=== PATIENT | female | born 1990 | race Asian ===

== ENCOUNTER 2018-04-05 07:34 | Emergency (ER) | payer OTHER ==
[2018-04-05 07:39] VITALS: BP 109/69; PULSE 96; TEMP 98.9; BMI 25.7
--- NOTE | 2018-04-05 08:10 | PDOC ---
History of Present Illness - General Chief Complaint: Cold Symptoms Stated Complaint: COUGH Time Seen by Provider: 04/05/18 07:44 History Source: Patient (Patient walked in complaining of cough, low grade fever muscle aches for 24 hours. just went over flu like symptoms recently. ) Exam Limitations: No Limitations - History of Present Illness Timing/Duration: 24 hours Severity: mild Modifying Factors: improves with: rest Associated Symptoms: reports: cough, fever/chills, nausea/vomiting Past History - Travel Traveled outside of the country in the last 30 days: No Close contact w/someone who was outside of country & ill: No - Past Medical History Allergies/Adverse Reactions: Allergies Allergy/AdvReac Type Severity Reaction Status Date / Time Penicillins Allergy Verified 04/05/18 07:36 Home Medications: Ambulatory Orders Oseltamivir Phosphate [Tamiflu -] 75 mg PO BID #10 capsule 04/05/18 Vit 108/Iron/Folic AC [ One Tablet] 1 each PO DAILY 04/05/18 COPD: No Other medical history: 13 week - Suicide/Smoking/Psychosocial Hx Smoking History: Never smoked Hx Alcohol Use: No Drug/Substance Use Hx: No Review of Systems - Review of Systems Able to Perform ROS?: Yes Is the patient limited Israeli proficient: Yes Constitutional: Yes: Fever, Malaise Respiratory: Yes: Symptoms reported, See HPI, Cough Cardiac (ROS): No: Symptoms Reported, See HPI, Chest Pain, Edema, Irregular Heart Rate, Lightheadedness, Palpitations, Syncope, Chest Tightness, Other ABD/GI: Yes: Nausea, Vomiting Neurological: No: Symptoms reported, See HPI, Headache, Numbness, Paresthesia, Pre-Existing Deficit, Seizure, Tingling, Tremors, Weakness, Unsteady Gait, Ataxia, Dizziness, Other Psychiatric: No: Anxiety, Depression, Frequent Crying, Stressors, Sleep Pattern Change, Emotional Problems, Mood Swings, Change in Appetite, Other All Other Systems: Reviewed and Negative *Physical Exam - Vital Signs Last Vital Signs Temp Pulse Resp BP Pulse Ox 98.9 F 96 H 16 109/69 100 04/05/18 07:35 04/05/18 07:35 04/05/18 07:35 04/05/18 07:35 04/05/18 07:35 - Physical Exam General Appearance: Yes: Nourished, Appropriately Dressed, Mild Distress HEENT: positive: ANNA, Scleral Icterus (R) Neck: positive: Normal Thyroid, Supple Respiratory/Chest: positive: Lungs Clear, Wheezing (very few wheezes) Cardiovascular: positive: S1, S2 Gastrointestinal/Abdominal: positive: Normal Bowel Sounds, Soft, Other ( suprapubic: uterus). 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 Discussed pros and cons of antiviral meds Patient agrees to start the Tamiflu 04/06/18 14:11 *DC/Admit/Observation/Transfer Diagnosis at time of Disposition: Viral syndrome Qualifiers: Weeks of gestation: 13 weeks Qualified Code(s): Z3A.13 - 13 weeks gestation of - Discharge Dispostion Disposition: HOME Condition at time of disposition: Stable Decision to Admit order: No - Prescriptions Prescriptions: Oseltamivir Phosphate [Tamiflu -] 75 mg PO BID #10 capsule - Referrals - Patient Instructions Printed Discharge Instructions: How to Avoid a Cold or Flu, DI for Viral Upper Respiratory Infection -- Adult Additional Instructions: FLUIDS, REST, ROBITUSSIN COUGH SYRUP RETURN TO ER IF MORE SYMPTOMS - Post Discharge Activity Forms/Work/School Notes: Back to Work
== END 2018-04-05 08:18 | disposition home or self-care (01) ==
LOC: FER 07:34
DX: O98.511 Other viral diseases complicating pregnancy, first trimester (principal); B34.9 Viral infection, unspecified; Z3A.13 13 weeks gestation of pregnancy; Z88.0 Allergy status to penicillin
CPT/HCPCS: 99281-25

== ENCOUNTER 2020-07-22 11:38 | Emergency (ER) | payer OTHER ==
[2020-07-22 11:50] VITALS: TEMP 99.2; BMI 29.2
[2020-07-22 12:20] LABS: BASO % 0.7 % (0-2.0); EOS % 2.6 % (0-4.5); HEMATOCRIT 35.6 % (32.4-45.2); HEMOGLOBIN 11.5 GM/dl (10.7-15.3); LYMPH % 17.3 % (8-40); MCH 26.5 pg (25.7-33.7); MCHC 32.4 g/dl (32.0-36.0); MEAN CELL VOLUME 81.6 fl (80-96); MEAN PLT VOLUME 7.4 fl (7.5-11.1); MONO % 4.8 % (3.8-10.2); NEUT % 74.6 % (42.8-82.8); PLATELET COUNT 498 K/MM3 (134-434); RBC 4.36 M/mm3 (3.60-5.2); RDW 14.2 % (11.6-15.6); WHITE BLOOD COUNT 10.6 K/mm3 (4.0-10.8)
[2020-07-22] MEDS ORDERED: SODIUM CHLORIDE 1,000 ML IV STA (12:34)
[2020-07-22 12:36] LABS: INR 1.03 (0.82-1.09); PROTHROMBIN TIME (PATIENT) 11.5 SEC (10.2-13.0)
[2020-07-22 12:39] LABS: ALBUMIN 3.2 g/dl (3.4-5.0); ALK PHOS 106 U/L (45-117); ANION GAP 8 MMOL/L (8-16); BILIRUBIN,TOTAL 0.7 mg/dl (0.2-1); CALCIUM 8.6 mg/dl (8.5-10); CHLORIDE 105 mmol/L (98-107); CO2 25 mmol/L (21-32); CREATININE 0.6 mg/dl (0.55-1.3); GLUCOSE,RANDOM 94 mg/dl (74-106); SGOT/AST 23 U/L (15-37); SGPT/ALT 30 U/L (13-61); SODIUM 138 mmol/L (136-145)
[2020-07-22 14:10] LABS: N-TERMINAL BNP 400.5 pg/ml (5-125)
[2020-07-22 14:41] VITALS: BP 128/69; PULSE 63
== END 2020-07-22 14:25 | disposition home or self-care (01) ==
LOC: FER 11:38
PROC: 3E0337Z Introduction of Electrolytic and Water Balance Substance into Peripheral Vein, Percutaneous Approach (ICD-10-PCS; principal; 2020-07-22)
DX: R07.9 Chest pain, unspecified (principal)
CPT/HCPCS: 36415; 71275-TC; 80053; 82550; 83880; 84484; 85025; 85610; 85730; 93005; 99285-25; Q9967